=== PATIENT | female | born 1935 | race Caucasian/White ===

== ENCOUNTER 2017-07-27 12:28 | Emergency (ER) | payer MEDICAID, MEDICARE ==
--- NOTE | 2017-07-27 12:44 | Emergency Department Record ---
History of Present Illness - General Chief complaint: Extremity Problem Stated complaint: RT SHOULDER PAIN Time Seen by Provider: 07/27/17 12:37 Source: Patient, Family Mode of Arrival: Ambulatory Limitations: No limitations - History of Present Illness Initial comments: 82 yo female presents with several days of increasing shoulder pain. The pain has increased today. She has a prior history of OA and bursitis. No falls or new injuries. The pain occurs with lifting or moving. She has had steroid shots in the past with good results. No history of surgery on the right shoulder. No fevers, redness or swelling. MD Complaint: Joint pain -: Days(s) Location: Shoulder -: Yes Arthralgia Radiation: Proximal Quality: Aching Consistency: Constant Improves with: Rest Worsens with: Palpation, Weight bearing Associated Symptoms: Arthralgias - Related Data Home Medications Medication Instructions Recorded Confirmed Last Taken Acetaminop W/ Codeine 300/30Mg 1 tab PO Q6H 07/27/17 07/27/17 Unknown [Tylenol with Codeine #3] Insulin Glargine,Hum.rec.anlog 1 unit SQ DAILY 07/27/17 07/27/17 Unknown [Lantus Solostar] Lisinopril 10 mg PO DAILY 07/27/17 07/27/17 Unknown Meloxicam 153 mg PO DAILY 07/27/17 07/27/17 Unknown Metformin HCl 500 mg PO BID 07/27/17 07/27/17 Unknown Previous Rx's Medication Instructions Recorded Acetaminop W/ Codeine 300/30Mg 1 tab PO Q6H #10 tab 07/27/17 [Tylenol #3] Allergies Allergy/AdvReac Type Severity Reaction Status Date / Time Penicillins Allergy ITCHING Verified 07/27/17 12:42 Review of Systems Constitutional: Denies: Chills, Fever, Malaise, Weakness Eyes: Denies: Eye discharge ENT: Denies: Congestion, Throat pain Respiratory: Denies: Cough, Dyspnea Cardiovascular: Denies: Chest pain, Palpitations, Syncope Endocrine: Denies: Fatigue Gastrointestinal: Denies: Abdominal pain, Diarrhea, Nausea, Vomiting Genitourinary: Denies: Dysuria Musculoskeletal: Reports: As per HPI, Arthralgia. Denies: Back pain, Joint swelling, Myalgia, Neck pain Skin: Denies: Bruising, Change in color, Rash Neurological: Denies: Headache, Numbness, Weakness Psychiatric: Denies: Anxiety Hematological/Lymphatic: Denies: Blood Clots, Easy bleeding, Easy bruising, Swollen glands Physical Exam - General General Appearance: Alert, Oriented x3, Cooperative, No acute distress Limitations: No limitations - Head Head exam: Normal inspection - Eye Eye exam: Normal appearance. negative: Conjunctival injection, Scleral icterus - ENT ENT exam: Normal exam Ear exam: Normal external inspection Nasal Exam: Normal inspection Mouth exam: Normal external inspection - Neck Neck exam: Normal inspection - Respiratory Respiratory exam: Normal lung sounds bilaterally. negative: Respiratory distress - Cardiovascular Cardiovascular Exam: Regular rate, Normal rhythm, Normal heart sounds Peripheral Pulses: 2+: Radial (R) - GI/Abdominal GI/Abdominal exam: Soft. negative: Tenderness - Rectal Rectal exam: Deferred - exam: Deferred - Extremities Extremities exam: Normal inspection, Normal capillary refill, Tenderness. negative: Calf tenderness, Full ROM, Joint swelling, Pedal edema Image of Full Body: 1 - ROM decreased by pain. Pain with internal and external rotation with only minimal decrease in ROM. Pain with abduction to about 30 degrees. - Back Back exam: Denies: CVA tenderness (R), CVA tenderness (L) - Neurological Neurological exam: Alert, Oriented X3 - Psychiatric Psychiatric exam: Normal affect, Normal mood - Skin Skin exam: Dry, Intact, Normal color, Warm Course - Reevaluation(s) Reevaluation #1: 07/27/17 13:15 The XR demonstrates osteopenia and advanced degenerative changes She was referred to orthopedics given prior orthopedist is not longer in [place] Disposition Disposition: Discharge Clinical Impression: Shoulder arthritis Disposition: Home, Self-Care Condition: (1) Good Instructions: Osteoarthritis (ED), Shoulder Pain (ED) Additional Instructions: Ice the shoulder to prevent swelling Call for follow up with your doctor and orthopedics Gently move the shoulder to prevent it from getting stiff or "frozen" in place Prescriptions: Acetaminop W/ Codeine 300/30Mg [Tylenol #3] 1 tab PO Q6H #10 tab Referrals: CHRIS MURPHY [DOCTOR OF OSTEOPATH] - [facility] [Provider Group] Forms: Patient Portal Access Time of Disposition: 13:16 Quality - Quality Measures Quality Measures: N/A - Blood Pressure Screening Does Patient Have Any of the Following: Active Dx of HTN Blood Pressure Classification: Hypertensive Reading Systolic Measurement: 177 Diastolic Measurement: 103 Screening for High Blood Pressure: Patient Exclusion, Hx of HTN [G9744]
[2017-07-27] MEDS: METHYLPREDNISOLONE 80MG/VIAL IM ONE (13:10)
--- NOTE | 2017-07-28 07:42 | RADIOLOGY REPORT ---
EXAM: RIGHT SHOULDER HISTORY: WORSENING SHOULDER PAIN. TECHNIQUE: Three views of the right shoulder were obtained. Comparison: None. Encounter: Initial. FINDINGS: Osteopenia. Advanced degenerative changes of the acromioclavicular and glenohumeral joints. Negative for acute fracture or dislocation. The soft tissues are unremarkable. IMPRESSION: OSTEOPENIA WITH ADVANCED DEGENERATIVE CHANGE. JOB NUMBER: [id number] MTDD
== END 2017-07-27 13:38 | disposition home or self-care (01) ==
LOC: ER 12:28
DX: M19.011 Primary osteoarthritis, right shoulder (principal)
CPT/HCPCS: 96372; 99283; 99284; J1040

== ENCOUNTER 2017-11-27 15:15 | Emergency (ER) | payer MEDICARE ==
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
== END 2017-11-27 17:28 | disposition home or self-care (01) ==
LOC: ER 15:15
DX: S83.92XA Sprain of unspecified site of left knee, initial encounter (principal); E11.9 Type 2 diabetes mellitus without complications; V00.811A Fall from moving wheelchair (powered), initial encounter; Y92.410 Unspecified street and highway as the place of occurrence of the external cause
CPT/HCPCS: 99283

== ENCOUNTER 2018-12-11 15:41 | Emergency (ER) | payer MEDICARE ==
--- NOTE | 2018-12-11 16:38 | Emergency Department Record ---
History of Present Illness - General Chief complaint: Extremity Problem Stated complaint: RT FOOT BROWN SPOT Time Seen by Provider: 12/11/18 16:01 Source: Patient Mode of Arrival: Ambulatory Limitations: No limitations - History of Present Illness Initial comments: The patient is here due to noticing swelling to the R foot this AM. She denies any pain, trauma, injury, leg, calf or thigh pain, CP or SOB. The patient has had a blood clot in the past and was concerned but she is not having any of the symptoms she had then. MD Complaint: Other Onset/Timin -: Days(s) Location: Right, Ankle Severity scale (1-10): 1 - Related Data Allergies Allergy/AdvReac Type Severity Reaction Status Date / Time Penicillins Allergy ITCHING Verified 12/11/18 15:51 Travel Screening - Travel/Exposure Within Last 30 Days Have you traveled within the last 30 days?: No - Travel/Exposure Within Last Year Have you traveled outside the [place] in the last year?: No - Additonal Travel Details Have you been exposed to anyone with a communicable illness?: No - Travel Symptoms Symptom Screening: None Review of Systems Constitutional: Denies: Chills, Fever Eyes: Denies: Eye discharge ENT: Denies: Congestion Respiratory: Denies: Cough, Dyspnea Cardiovascular: Denies: Chest pain, Palpitations Past Medical History - SOCIAL HISTORY Smoking Status: Never smoker Alcohol Use: None Drug Use: None - RESPIRATORY Hx Respiratory Disorders: No - CARDIOVASCULAR Hx Cardio Disorders: No - NEURO Hx Neuro Disorders: No - GI Hx GI Disorders: No - Hx Genitourinary Disorders: No - ENDOCRINE Hx Endocrine Disorders: Yes Hx Diabetes: Yes (type 2) Hx Thyroid Disease: No - MUSCULOSKELETAL Hx Musculoskeletal Disorders: Yes Hx Arthritis: Yes - PSYCH Hx Psych Problems: No - HEMATOLOGY/ONCOLOGY Hx Hematology/Oncology Disorders: No Family Medical History Any Significant Family History?: Yes Physical Exam - General General Appearance: Alert, Oriented x3, Cooperative, No acute distress - Head Head exam: Atraumatic - Eye Eye exam: Normal appearance - Neck Neck exam: Normal inspection, Full ROM. negative: Tenderness - Respiratory Respiratory exam: Normal lung sounds bilaterally. negative: Respiratory distress - Cardiovascular Cardiovascular Exam: Regular rate, Normal rhythm, Normal heart sounds - GI/Abdominal GI/Abdominal exam: Soft, Normal bowel sounds. negative: Tenderness - Extremities Extremities exam: Normal inspection, Full ROM, Other (There is a 2x2 cm area of very slight edema to the R anterior medial ankle which is nontender and without any warmth or erythema. There is the exact same swelling on the L ankle as well.). negative: Calf tenderness (There is no calf, posterior knee or thigh tenderness.), Joint swelling, Pedal edema, Tenderness Image of Feet: 1 - Area of swelling. Course Vital Signs 12/11/18 15:59 Temperature 98.9 F Pulse Rate [ 94 H Pulse Ox Probe] Respiratory 16 Rate Blood Pressure 134/72 [Left Arm] Pulse Ox 95 - Reevaluation(s) Reevaluation #1: I did explain to the patient that I strongly doubt any serious pathology due to the fact the swollen area appears very benign and is the same as the L foot. I did offer to send the patient for an leg Doppler even though I am very confident she does not have a DVT. The patient declined and will go home and wear her compression stockings. 12/11/18 16:40 Disposition Disposition: Discharge Clinical Impression: Localized swelling of right lower leg Disposition: Home, Self-Care Condition: (2) Stable Instructions: Leg Edema (ED) Additional Instructions: Please wear your compression stockings during the day. Please see your family doctor for recheck this week. Return to the ER for any worsening symptoms or if you are concerned about a blood clot. Forms: Patient Portal Access Time of Disposition: 16:38 Quality - Quality Measures Quality Measures: N/A - Blood Pressure Screening View Details: Yes Does Patient Have Any of the Following: No Blood Pressure Classification: Pre-Hypertensive BP Reading Systolic Measurement: 134 Diastolic Measurement: 72 Screening for High Blood Pressure: < Pre-Hypertensive BP, F/U Documented > [G8950] Pre-Hypertensive Follow-up Interventions: Referral to alternative/primary care provider.
== END 2018-12-11 16:42 | disposition home or self-care (01) ==
LOC: ER 15:41
DX: R60.0 Localized edema (principal); M79.671 Pain in right foot; E11.9 Type 2 diabetes mellitus without complications
CPT/HCPCS: 99283